=== PATIENT | female | born 1945 | race Caucasian/White ===

== ENCOUNTER 2018-08-15 11:10 | Observation (INO) | payer MEDICAID, OTHER | END 2018-08-16 17:15 | disposition home or self-care (01) | LOC: C.ER 11:10 → C.9E 13:38 → C.5S 14:54 ==

== ENCOUNTER 2018-09-14 09:49 | Outpatient (CLI) | payer OTHER | END 2018-09-14 09:50 | disposition home or self-care (01) | LOC: C.USIC 09:50 ==

== ENCOUNTER 2018-09-19 10:54 | Outpatient (CLI) | payer OTHER | END 2018-09-19 10:55 | disposition home or self-care (01) | LOC: C.MAMMO 10:54 | DX: N63.0 Unspecified lump in unspecified breast (principal) ==